=== PATIENT | female | born 1950 | race Caucasian/White ===

== ENCOUNTER 2017-05-22 12:02 | Observation (INO) | payer OTHER ==
[~2017-05-22] VITALS: Ht 160 cm; Wt 68.6 kg
[2017-05-22 13:50] LABS: HEMOGLOBIN 14.4 gm/dl (12.3-15.3); RED BLOOD COUNT 4.96 M/UL (4.00-5.10); WHITE BLOOD COUNT 7.4 K/UL (4.5-11.0)
[2017-05-22 14:10] LABS: BUN/CREATININE RATIO 13 (0-10)
[2017-05-23 02:53] LABS: HEMOGLOBIN 13.2 gm/dl (12.3-15.3); RED BLOOD COUNT 4.59 M/UL (4.00-5.10); WHITE BLOOD COUNT 7.2 K/UL (4.5-11.0)
[2017-05-23 03:19] LABS: BUN/CREATININE RATIO 17 (0-10)
[2017-05-23] MEDS ORDERED: IMDUR ER TAB 3030 MG PO (10:33)
[2017-05-23] MEDS ORDERED: ASPIR-LOW81 MG PO (10:33)
[2017-05-23] MEDS ORDERED: NITROGLYCERIN0.4 MG SL (10:34)
== END 2017-05-23 12:17 | disposition home or self-care (01) ==
LOC: ER1 12:02 → ZEROF 16:24 → M/S 16:24
PROVIDERS: Physician Assistant; ADMIT Family Medicine
DX: R07.89 Other chest pain (principal); E78.5 Hyperlipidemia, unspecified; E11.9 Type 2 diabetes mellitus without complications; I25.10 Atherosclerotic heart disease of native coronary artery without angina pectoris; F32.9 Major depressive disorder, single episode, unspecified; F41.9 Anxiety disorder, unspecified; N60.19 Diffuse cystic mastopathy of unspecified breast; Z79.82 Long term (current) use of aspirin; Z79.899 Other long term (current) drug therapy
CPT/HCPCS: 36415; 70450; 71020; 80048; 80053; 80061; 82550; 82553; 82962; 83036; 83874; 84484; 85025; 93005; 96360; 96361; 99285; G0378

== ENCOUNTER → 2021-03-24 | Outpatient (CLI) | payer OTHER ==
[~2021-03-24] MED LIST: ALPRAZOLAM0.5 MG PO; ASPIR-LOW81 MG PO; CRESTOR40 MG PO; CYMBALTA30 MG PO; GLUCOTROL5 MG PO; IMDUR ER TAB 3030 MG PO; METOPROLOL SUCC25 MG PO; NITROGLYCERIN0.4 MG SL; PROTONIX 40 MG40 M1 PO; SYNTHROID25 MCG PO; ZETIA 10 MG TAB10 MG PO
== END ==
LOC: KOH-I 08:53
DX: R51.9 Headache, unspecified (principal); R90.82 White matter disease, unspecified
CPT/HCPCS: 70551

== ENCOUNTER → 2022-03-28 | Outpatient (CLI) | payer OTHER | LOC: KOH-I 13:42 | DX: E04.1 Nontoxic single thyroid nodule (principal) | CPT/HCPCS: 76536 ==

== ENCOUNTER → 2022-07-05 | Outpatient (CLI) | payer OTHER | LOC: EMI 08:07 | DX: R51.9 Headache, unspecified (principal); G31.9 Degenerative disease of nervous system, unspecified | CPT/HCPCS: 70551 ==

== ENCOUNTER → 2022-07-27 | Outpatient (CLI) | payer OTHER | LOC: KOH-I 07-25 10:30 | DX: N02.9 Recurrent and persistent hematuria with unspecified morphologic changes (principal); K63.89 Other specified diseases of intestine | CPT/HCPCS: 74176 ==